=== PATIENT | female | born 1955 | race African-American/Black ===

== ENCOUNTER 2016-06-05 08:03 | Outpatient (CLI) | payer MEDICARE ==
[2016-06-05 09:15] LABS: Anion Gap 19 mmol/L (10-20); BUN (Urea Nitrogen) 79 mg/dL (9.8-20.1); Calc. Creatinine Clearance 0 mL/min (70-130); Carbon Dioxide 27 mmol/L (23-31); Chloride 99 mmol/L (98-107); Estimated GFR-MDRD 10
[2016-06-05 10:16] LABS: #Basophils 0.1 thou/uL (0.0-0.2); #Eosinphils 0.3 thou/uL (0.0-0.7); #Monocytes 0.7 thou/uL (0.11-0.59); #Neutrophils 3.2 thou/uL (1.40-6.50); %Eosinophils 4.3 % (0.0-10.0); %Lymphocytes 40.8 % (21.0-51.0); %Monocytes 9.8 % (0.0-10.0); Hematocrit 40.1 % (36.0-47.0); Mean Platelet Volume 6.7 fL (7.4-10.4); Red Blood Cell (RBC) Count 4.21 mill/uL (4.20-5.40); White Blood Cell (WBC) Count 7.4 thou/uL (4.8-10.8)
[2016-06-05 10:17] LABS: Anisocytosis SLIGHT = 6-15 cells (100X) (0-5/hpf)
== END 2016-06-05 08:04 | disposition home or self-care (01) ==
LOC: NAV LABSP 08:03
PROVIDERS: ATTEND Family Medicine
DX: E16.2 Hypoglycemia, unspecified (principal); D64.9 Anemia, unspecified
CPT/HCPCS: 36415; 80048; 85025

== ENCOUNTER 2016-07-09 08:16 | Outpatient (CLI) | payer MEDICARE ==
[2016-07-09 09:33] LABS: #Basophils 0.1 thou/uL (0.0-0.2); #Eosinphils 0.3 thou/uL (0.0-0.7); #Lymphocytes 3.2 thou/uL (1.20-3.40); #Monocytes 0.7 thou/uL (0.11-0.59); #Neutrophils 4.4 thou/uL (1.40-6.50); %Basophils 0.8 % (0.0-1.0); %Lymphocytes 37.2 % (21.0-51.0); %Monocytes 8.3 % (0.0-10.0); Hematocrit 29.7 % (36.0-47.0); Mean Platelet Volume 6.5 fL (7.4-10.4); Red Blood Cell (RBC) Count 3.24 mill/uL (4.20-5.40); White Blood Cell (WBC) Count 8.7 thou/uL (4.8-10.8)
[2016-07-09 09:41] LABS: ALT (SGPT) 13 U/L (0-55); AST (SGOT) 15 U/L (5-34); Alkaline Phosphatase 69 U/L (40-150); Anion Gap 19 mmol/L (10-20); Bilirubin, Direct 0.2 mg/dL (0.1-0.3); Bilirubin, Total 0.5 mg/dL (0.2-1.2); Calc. Creatinine Clearance 0 mL/min (70-130); Calcium 8.5 mg/dL (7.8-10.44); Carbon Dioxide 26 mmol/L (23-31); Chloride 96 mmol/L (98-107); Estimated GFR-MDRD 7; LDL Cholesterol, Calculated 105 mg/dL; Protein, Total 5.9 g/dL (5.8-8.1)
[2016-07-09 12:03] LABS: BUN (Urea Nitrogen) 104 mg/dL (9.8-20.1)
== END 2016-07-09 08:17 | disposition home or self-care (01) ==
LOC: NAV LABSP 08:16
PROVIDERS: ATTEND Family Medicine
DX: E16.2 Hypoglycemia, unspecified (principal); D64.9 Anemia, unspecified
CPT/HCPCS: 36415; 80048; 80061; 80076; 85025

== ENCOUNTER 2016-08-07 07:42 | Outpatient (CLI) | payer MEDICARE ==
[2016-08-07 10:01] LABS: Anion Gap 19 mmol/L (10-20); BUN (Urea Nitrogen) 46 mg/dL (9.8-20.1); Calc. Creatinine Clearance 0 mL/min (70-130); Carbon Dioxide 27 mmol/L (23-31); Chloride 99 mmol/L (98-107); Estimated GFR-MDRD 12
[2016-08-07 11:38] LABS: #Basophils 0.1 thou/uL (0.0-0.2); #Eosinphils 0.2 thou/uL (0.0-0.7); #Lymphocytes 3.1 thou/uL (1.20-3.40); #Monocytes 0.7 thou/uL (0.11-0.59); #Neutrophils 2.8 thou/uL (1.40-6.50); %Basophils 1.1 % (0.0-1.0); %Eosinophils 3.3 % (0.0-10.0); %Lymphocytes 44.7 % (21.0-51.0); %Monocytes 10.6 % (0.0-10.0); Anisocytosis SLIGHT = 6-15 cells (100X) (0-5/hpf); Hematocrit 39.3 % (36.0-47.0); Macrocytosis SLIGHT = 6-15 cells (100X) (0-5/hpf); Red Blood Cell (RBC) Count 3.82 mill/uL (4.20-5.40); White Blood Cell (WBC) Count 6.9 thou/uL (4.8-10.8)
== END 2016-08-07 07:43 | disposition home or self-care (01) ==
LOC: NAV LABSP 07:42
PROVIDERS: ATTEND Family Medicine
DX: D64.9 Anemia, unspecified (principal); E16.2 Hypoglycemia, unspecified
CPT/HCPCS: 36415; 80048; 85025

== ENCOUNTER 2016-09-09 07:19 | Outpatient (CLI) | payer MEDICARE, OTHER ==
[2016-09-09 07:43] LABS: INR-International Normal Ratio 1.9; Prothrombin Time 21.9 SEC (12.0-14.7)
[2016-09-09 07:50] LABS: Anion Gap 20 mmol/L (10-20); BUN (Urea Nitrogen) 59 mg/dL (9.8-20.1); Calc. Creatinine Clearance 0 mL/min (70-130); Calcium 9.2 mg/dL (7.8-10.44); Carbon Dioxide 27 mmol/L (23-31); Chloride 98 mmol/L (98-107); Estimated GFR-MDRD 8; Potassium 4.3 mmol/L (3.5-5.1); Sodium 141 mmol/L (136-145)
[2016-09-09 07:56] LABS: #Basophils 0.1 thou/uL (0.0-0.2); #Eosinphils 0.2 thou/uL (0.0-0.7); #Lymphocytes 1.8 thou/uL (1.20-3.40); #Monocytes 0.7 thou/uL (0.11-0.59); #Neutrophils 2.6 thou/uL (1.40-6.50); %Basophils 1.2 % (0.0-1.0); %Eosinophils 4.4 % (0.0-10.0); %Lymphocytes 33.9 % (21.0-51.0); %Monocytes 13.3 % (0.0-10.0); %Neutrophils 47.2 % (42.0-75.0); Hemoglobin 13.2 g/dL (12.0-16.0); Mean Corpuscular HGB CONC 30.7 g/dL (32.0-36.0); Mean Platelet Volume 6.5 fL (7.4-10.4); Platelet Count 253 thou/uL (130-400); RBC Distribution Width 19.5 % (11.5-14.5); Red Blood Cell (RBC) Count 4.14 mill/uL (4.20-5.40); White Blood Cell (WBC) Count 5.4 thou/uL (4.8-10.8)
[2016-09-09 08:13] LABS: Glucose 56 mg/dL (80-115)
== END 2016-09-09 07:20 | disposition home or self-care (01) ==
LOC: NAV LABSP 07:19
PROVIDERS: ATTEND Family Medicine
DX: D64.9 Anemia, unspecified (principal); E11.9 Type 2 diabetes mellitus without complications; E78.5 Hyperlipidemia, unspecified
CPT/HCPCS: 36415; 80048; 85025; 85610

== ENCOUNTER 2016-10-22 08:12 | Outpatient (CLI) | payer MEDICARE, OTHER ==
[2016-10-22 08:51] LABS: #Basophils 0.1 thou/uL (0.0-0.2); #Eosinphils 0.2 thou/uL (0.0-0.7); #Lymphocytes 3.1 thou/uL (1.20-3.40); #Monocytes 0.7 thou/uL (0.11-0.59); #Neutrophils 3.5 thou/uL (1.40-6.50); %Basophils 0.8 % (0.0-1.0); %Lymphocytes 40.4 % (21.0-51.0); %Monocytes 9.4 % (0.0-10.0); %Neutrophils 46.4 % (42.0-75.0); Hemoglobin 11.5 g/dL (12.0-16.0); Mean Corpuscular HGB CONC 30.3 g/dL (32.0-36.0); Mean Corpuscular Hemoglobin 29.4 pg (27.0-31.0); Mean Platelet Volume 6.7 fL (7.4-10.4); Platelet Count 183 thou/uL (130-400); RBC Distribution Width 16.8 % (11.5-14.5); Red Blood Cell (RBC) Count 3.92 mill/uL (4.20-5.40); White Blood Cell (WBC) Count 7.6 thou/uL (4.8-10.8)
[2016-10-22 09:00] LABS: Anion Gap 22 mmol/L (10-20); BUN (Urea Nitrogen) 108 mg/dL (9.8-20.1); Calc. Creatinine Clearance 0 mL/min (70-130); Calcium 8.5 mg/dL (7.8-10.44); Carbon Dioxide 23 mmol/L (23-31); Chloride 97 mmol/L (98-107); Estimated GFR-MDRD 7; Potassium 4.6 mmol/L (3.5-5.1); Sodium 137 mmol/L (136-145)
[2016-10-22 09:26] LABS: Glucose 56 mg/dL (80-115)
== END 2016-10-22 08:13 | disposition home or self-care (01) ==
LOC: NAV LABSP 08:12
PROVIDERS: ATTEND Family Medicine
DX: E16.2 Hypoglycemia, unspecified (principal); D64.9 Anemia, unspecified
CPT/HCPCS: 36415; 80048; 85025

== ENCOUNTER 2016-11-14 07:13 | Outpatient (CLI) | payer MEDICARE, OTHER ==
[2016-11-14 08:05] LABS: #Basophils 0.1 thou/uL (0.0-0.2); #Eosinphils 0.2 thou/uL (0.0-0.7); #Monocytes 0.8 thou/uL (0.11-0.59); #Neutrophils 3.3 thou/uL (1.40-6.50); %Basophils 0.8 % (0.0-1.0); %Eosinophils 2.4 % (0.0-10.0); %Lymphocytes 40.2 % (21.0-51.0); %Monocytes 11.2 % (0.0-10.0); %Neutrophils 45.4 % (42.0-75.0); Hemoglobin 9.3 g/dL (12.0-16.0); Mean Corpuscular HGB CONC 31.1 g/dL (32.0-36.0); Mean Corpuscular Hemoglobin 29.1 pg (27.0-31.0); Mean Corpuscular Volume 93.5 fl (81.0-99.0); Mean Platelet Volume 6.3 fL (7.4-10.4); Platelet Count 191 thou/uL (130-400); RBC Distribution Width 16.6 % (11.5-14.5); Red Blood Cell (RBC) Count 3.18 mill/uL (4.20-5.40); White Blood Cell (WBC) Count 7.4 thou/uL (4.8-10.8)
[2016-11-14 08:08] LABS: INR-International Normal Ratio 1.9; Prothrombin Time 22.7 SEC (12.0-14.7)
[2016-11-14 08:18] LABS: Anion Gap 18 mmol/L (10-20); BUN (Urea Nitrogen) 75 mg/dL (9.8-20.1); Calc. Creatinine Clearance 0 mL/min (70-130); Calcium 8.7 mg/dL (7.8-10.44); Carbon Dioxide 28 mmol/L (23-31); Chloride 98 mmol/L (98-107); Estimated GFR-MDRD 9; Sodium 140 mmol/L (136-145)
[2016-11-14 08:34] LABS: Glucose 59 mg/dL (80-115)
== END 2016-11-14 07:14 | disposition home or self-care (01) ==
LOC: NAV LABSP 07:13
PROVIDERS: ATTEND Family Medicine
DX: E16.2 Hypoglycemia, unspecified (principal); D64.9 Anemia, unspecified
CPT/HCPCS: 36415; 80048; 85025; 85610

== ENCOUNTER 2016-11-15 07:11 | Outpatient (CLI) | payer MEDICARE, OTHER ==
[2016-11-15 08:14] LABS: INR-International Normal Ratio 1.7; Prothrombin Time 20.8 SEC (12.0-14.7)
== END 2016-11-15 07:12 | disposition home or self-care (01) ==
LOC: NAV LABSP 07:11
PROVIDERS: ATTEND Family Medicine
DX: Z79.01 Long term (current) use of anticoagulants (principal)
CPT/HCPCS: 36415; 85610

== ENCOUNTER 2016-11-18 07:07 | Outpatient (CLI) | payer MEDICARE, OTHER ==
[2016-11-18 08:49] LABS: INR-International Normal Ratio 1.3; Prothrombin Time 16.7 SEC (12.0-14.7)
== END 2016-11-18 07:08 | disposition home or self-care (01) ==
LOC: NAV LABSP 07:07
PROVIDERS: ATTEND Family Medicine
DX: Z51.81 Encounter for therapeutic drug level monitoring (principal); Z79.01 Long term (current) use of anticoagulants
CPT/HCPCS: 36415; 85610

== ENCOUNTER 2016-11-19 09:00 | Outpatient (CLI) | payer MEDICARE, OTHER ==
[2016-11-19 10:01] LABS: INR-International Normal Ratio 1.4; Prothrombin Time 17.6 SEC (12.0-14.7)
== END 2016-11-19 09:01 | disposition home or self-care (01) ==
LOC: NAV LABSP 09:00
PROVIDERS: ATTEND Family Medicine
DX: Z51.81 Encounter for therapeutic drug level monitoring (principal); Z79.01 Long term (current) use of anticoagulants
CPT/HCPCS: 36415; 85610

== ENCOUNTER 2016-11-20 07:53 | Outpatient (CLI) | payer MEDICARE, OTHER ==
[2016-11-20 09:04] LABS: INR-International Normal Ratio 1.5; Prothrombin Time 18.1 SEC (12.0-14.7)
== END 2016-11-20 07:54 | disposition home or self-care (01) ==
LOC: NAV LABSP 07:53
PROVIDERS: ATTEND Family Medicine
DX: Z51.81 Encounter for therapeutic drug level monitoring (principal); Z79.01 Long term (current) use of anticoagulants
CPT/HCPCS: 36415; 85610

== ENCOUNTER 2016-11-21 10:40 | Outpatient (CLI) | payer MEDICARE, OTHER ==
[2016-11-21 12:41] LABS: INR-International Normal Ratio 1.5; Prothrombin Time 18.7 SEC (12.0-14.7)
== END 2016-11-21 10:41 | disposition home or self-care (01) ==
LOC: NAV LABSP 10:40
PROVIDERS: ATTEND Family Medicine
DX: Z51.81 Encounter for therapeutic drug level monitoring (principal); Z79.01 Long term (current) use of anticoagulants
CPT/HCPCS: 36415; 85610

== ENCOUNTER 2016-11-22 07:56 | Outpatient (CLI) | payer MEDICARE, OTHER ==
[2016-11-22 08:43] LABS: INR-International Normal Ratio 1.5; Prothrombin Time 18.1 SEC (12.0-14.7)
== END 2016-11-22 07:57 | disposition home or self-care (01) ==
LOC: NAV LABSP 07:56
PROVIDERS: ATTEND Family Medicine
DX: Z51.81 Encounter for therapeutic drug level monitoring (principal); Z79.01 Long term (current) use of anticoagulants
CPT/HCPCS: 36415; 85610

== ENCOUNTER 2016-11-25 08:55 | Outpatient (CLI) | payer MEDICARE, OTHER ==
[2016-11-25 10:45] LABS: INR-International Normal Ratio 1.3; Prothrombin Time 16.7 SEC (12.0-14.7)
== END 2016-11-25 08:56 | disposition home or self-care (01) ==
LOC: NAV LAB 08:55
PROVIDERS: ATTEND Family Medicine
DX: Z51.81 Encounter for therapeutic drug level monitoring (principal); Z79.01 Long term (current) use of anticoagulants
CPT/HCPCS: 36415; 85610

== ENCOUNTER 2016-11-27 08:04 | Outpatient (CLI) | payer MEDICARE, OTHER ==
[2016-11-27 09:42] LABS: INR-International Normal Ratio 1.9; Prothrombin Time 22.8 SEC (12.0-14.7)
== END 2016-11-27 08:05 | disposition home or self-care (01) ==
LOC: NAV LABSP 08:04
PROVIDERS: ATTEND Family Medicine
DX: Z51.81 Encounter for therapeutic drug level monitoring (principal); Z79.01 Long term (current) use of anticoagulants
CPT/HCPCS: 36415; 85610

== ENCOUNTER 2016-11-28 07:11 | Outpatient (CLI) | payer MEDICARE, OTHER ==
[2016-11-28 08:24] LABS: INR-International Normal Ratio 1.7; Prothrombin Time 20.6 SEC (12.0-14.7)
== END 2016-11-28 07:12 | disposition home or self-care (01) ==
LOC: NAV LABSP 07:11
PROVIDERS: ATTEND Family Medicine
DX: Z51.81 Encounter for therapeutic drug level monitoring (principal); D64.9 Anemia, unspecified; Z79.01 Long term (current) use of anticoagulants
CPT/HCPCS: 36415; 85610

== ENCOUNTER 2016-11-30 10:28 | Outpatient (CLI) | payer MEDICARE, OTHER ==
[2016-11-30 15:37] LABS: INR-International Normal Ratio 2.2; Prothrombin Time 25.2 SEC (12.0-14.7)
== END 2016-11-30 10:29 | disposition home or self-care (01) ==
LOC: NAV LABSP 10:28
PROVIDERS: ATTEND Family Medicine
DX: E16.2 Hypoglycemia, unspecified (principal); D64.9 Anemia, unspecified; Z79.01 Long term (current) use of anticoagulants
CPT/HCPCS: 36415; 85610

== ENCOUNTER 2016-12-09 10:32 | Outpatient (CLI) | payer MEDICARE, OTHER ==
[2016-12-09 12:05] LABS: INR-International Normal Ratio 1.5; Prothrombin Time 18.8 SEC (12.0-14.7)
== END 2016-12-09 10:33 | disposition home or self-care (01) ==
LOC: NAV LABSP 10:32
PROVIDERS: ATTEND Family Medicine
DX: Z51.81 Encounter for therapeutic drug level monitoring (principal); I63.412 Cerebral infarction due to embolism of left middle cerebral artery; Z79.01 Long term (current) use of anticoagulants
CPT/HCPCS: 36415; 85610

== ENCOUNTER 2016-12-16 22:41 | Outpatient (CLI) | payer MEDICARE, OTHER ==
[2016-12-16 23:10] LABS: INR-International Normal Ratio 3.5; Prothrombin Time 36.8 SEC (12.0-14.7)
== END 2016-12-16 22:42 | disposition home or self-care (01) ==
LOC: NAV LABSP 22:41
PROVIDERS: ATTEND Family Medicine
DX: Z51.81 Encounter for therapeutic drug level monitoring (principal); Z79.01 Long term (current) use of anticoagulants
CPT/HCPCS: 36415; 85610

== ENCOUNTER 2016-12-23 09:38 | Outpatient (CLI) | payer MEDICARE, OTHER ==
[2016-12-23 10:28] LABS: Prothrombin Time 32.2 SEC (12.0-14.7)
== END 2016-12-23 09:39 | disposition home or self-care (01) ==
LOC: NAV LABSP 09:38
PROVIDERS: ATTEND Family Medicine
DX: Z51.81 Encounter for therapeutic drug level monitoring (principal); Z79.01 Long term (current) use of anticoagulants
CPT/HCPCS: 36415; 85610

== ENCOUNTER 2016-12-30 07:32 | Outpatient (CLI) | payer MEDICARE, OTHER ==
[2016-12-30 08:57] LABS: INR-International Normal Ratio 3.7; Prothrombin Time 38.9 SEC (12.0-14.7)
== END 2016-12-30 07:33 | disposition home or self-care (01) ==
LOC: NAV LABSP 07:32
PROVIDERS: ATTEND Family Medicine
DX: Z51.81 Encounter for therapeutic drug level monitoring (principal); Z79.01 Long term (current) use of anticoagulants
CPT/HCPCS: 36415; 85610

== ENCOUNTER 2017-01-06 07:27 | Outpatient (CLI) | payer MEDICARE, OTHER ==
[2017-01-06 09:08] LABS: Prothrombin Time 40.8 SEC (12.0-14.7)
== END 2017-01-06 07:28 | disposition home or self-care (01) ==
LOC: NAV LABSP 07:27
PROVIDERS: ATTEND Family Medicine
DX: E16.2 Hypoglycemia, unspecified (principal); D64.9 Anemia, unspecified; Z79.01 Long term (current) use of anticoagulants
CPT/HCPCS: 36415; 85610

== ENCOUNTER 2017-01-08 07:42 | Outpatient (CLI) | payer MEDICARE, OTHER ==
[2017-01-08 11:20] LABS: INR-International Normal Ratio 2.6; Prothrombin Time 29.1 SEC (12.0-14.7)
[2017-01-08 11:31] LABS: #Basophils 0.1 thou/uL (0.0-0.2); #Eosinphils 0.2 thou/uL (0.0-0.7); #Lymphocytes 2.7 thou/uL (1.20-3.40); #Monocytes 0.9 thou/uL (0.11-0.59); #Neutrophils 3.4 thou/uL (1.40-6.50); %Basophils 1.1 % (0.0-1.0); %Eosinophils 3.1 % (0.0-10.0); %Lymphocytes 37.2 % (21.0-51.0); %Monocytes 11.9 % (0.0-10.0); %Neutrophils 46.7 % (42.0-75.0); Anisocytosis MARKED = >30 cells (100X) (0-5/hpf); Hemoglobin 9.5 g/dL (12.0-16.0); Hypochromia MODERATE=16-30 cells (100X) (0-5/hpf); MDiff Complete? YES; Macrocytosis SLIGHT = 6-15 cells (100X) (0-5/hpf); Mean Corpuscular HGB CONC 30.8 g/dL (32.0-36.0); Mean Corpuscular Hemoglobin 32.2 pg (27.0-31.0); Mean Platelet Volume 6.2 fL (7.4-10.4); PLT Morphology Comment Appears Adequate; Platelet Count 225 thou/uL (130-400); Poikilocytosis MODERATE=16-30 cells (100X) (0-5/hpf); RBC Distribution Width 19.5 % (11.5-14.5); Red Blood Cell (RBC) Count 2.95 mill/uL (4.20-5.40); Reflex for Review?? NO; Stomatocytes MODERATE= 6-15 cells (100X) (0-1/hpf); Target Cells SLIGHT = 2-5 cells (100X) (0-1/hpf); White Blood Cell (WBC) Count 7.3 thou/uL (4.8-10.8)
[2017-01-08 17:26] LABS: Hemoglobin A1c 4.4 % (4.0-6.0)
[2017-01-08 17:43] LABS: ALT (SGPT) 17 U/L (8-55); AST (SGOT) 15 U/L (5-34); Albumin 3.2 g/dL (3.4-4.8); Alkaline Phosphatase 80 U/L (40-150); Anion Gap 19 mmol/L (10-20); BUN (Urea Nitrogen) 53 mg/dL (9.8-20.1); Bilirubin, Direct 0.1 mg/dL (0.1-0.3); Bilirubin, Total 0.5 mg/dL (0.2-1.2); Calc. Creatinine Clearance 0 mL/min (70-130); Calcium 8.6 mg/dL (7.8-10.44); Carbon Dioxide 27 mmol/L (23-31); Cardiac Risk 4.2 (Less than 4.5); Chloride 97 mmol/L (98-107); Cholesterol 254 mg/dl (< 200 Desired); Estimated GFR-MDRD 11; Glucose 91 mg/dL (80-115); HDL Cholesterol 61 mg/dL (>60 Neg Risk); LDL Cholesterol, Calculated 152 mg/dL; Protein, Total 6.1 g/dL (6.0-8.3); Sodium 139 mmol/L (136-145); Triglycerides 205 mg/dL (Less than 150)
== END 2017-01-08 07:43 | disposition home or self-care (01) ==
LOC: NAV LABSP 07:42
PROVIDERS: ATTEND Family Medicine
DX: Z51.81 Encounter for therapeutic drug level monitoring (principal); E16.2 Hypoglycemia, unspecified; D64.9 Anemia, unspecified; E11.22 Type 2 diabetes mellitus with diabetic chronic kidney disease; I12.9 Hypertensive chronic kidney disease with stage 1 through stage 4 chronic kidney disease, or unspecified chronic kidney disease; N18.9 Chronic kidney disease, unspecified; Z79.01 Long term (current) use of anticoagulants
CPT/HCPCS: 36415; 80048; 80061; 80076; 83036; 84443; 85025; 85610

== ENCOUNTER 2017-01-13 10:38 | Outpatient (CLI) | payer MEDICARE, OTHER ==
[2017-01-13 11:31] LABS: INR-International Normal Ratio 2.3; Prothrombin Time 25.7 SEC (12.0-14.7)
== END 2017-01-13 10:39 | disposition home or self-care (01) ==
LOC: NAV LABSP 10:38
PROVIDERS: ATTEND Family Medicine
DX: E16.2 Hypoglycemia, unspecified (principal); D64.9 Anemia, unspecified; Z79.01 Long term (current) use of anticoagulants
CPT/HCPCS: 36415; 85610

== ENCOUNTER 2017-01-16 07:27 | Outpatient (CLI) | payer MEDICARE, OTHER ==
[2017-01-16 07:48] LABS: Hemoglobin A1c 4.4 % (4.0-6.0)
== END 2017-01-16 07:28 | disposition home or self-care (01) ==
LOC: NAV LABSP 07:27
PROVIDERS: ATTEND Family Medicine
DX: E11.9 Type 2 diabetes mellitus without complications (principal)
CPT/HCPCS: 36415; 83036

== ENCOUNTER 2017-01-20 08:06 | Outpatient (CLI) | payer MEDICARE, OTHER ==
[2017-01-20 09:11] LABS: INR-International Normal Ratio 1.6; Prothrombin Time 19.1 SEC (12.0-14.7)
== END 2017-01-20 08:07 | disposition home or self-care (01) ==
LOC: NAV LABSP 08:06
PROVIDERS: ATTEND Family Medicine
DX: Z51.81 Encounter for therapeutic drug level monitoring (principal); Z79.01 Long term (current) use of anticoagulants
CPT/HCPCS: 36415; 85610

== ENCOUNTER 2017-01-27 09:01 | Outpatient (CLI) | payer MEDICARE, OTHER ==
[2017-01-27 09:19] LABS: INR-International Normal Ratio 2.6; Prothrombin Time 28.5 SEC (12.0-14.7)
== END 2017-01-27 09:02 | disposition home or self-care (01) ==
LOC: NAV LABSP 09:01
PROVIDERS: ATTEND Family Medicine
DX: Z51.81 Encounter for therapeutic drug level monitoring (principal); Z79.01 Long term (current) use of anticoagulants
CPT/HCPCS: 36415; 85610

== ENCOUNTER 2017-02-04 07:56 | Outpatient (CLI) | payer MEDICARE, OTHER ==
[2017-02-04 11:08] LABS: INR-International Normal Ratio 2.7; Prothrombin Time 29.4 SEC (12.0-14.7)
== END 2017-02-04 07:57 | disposition home or self-care (01) ==
LOC: NAV LABSP 07:56
PROVIDERS: ATTEND Internal Medicine
DX: Z51.81 Encounter for therapeutic drug level monitoring (principal); I10 Essential (primary) hypertension; Z79.01 Long term (current) use of anticoagulants
CPT/HCPCS: 36415; 85610

== ENCOUNTER 2017-02-24 09:50 | Emergency (ER) | payer MEDICARE, OTHER ==
[2017-02-24 10:39] LABS: #Basophils 0.1 thou/uL (0.0-0.2); #Eosinphils 0.2 thou/uL (0.0-0.7); #Lymphocytes 2.6 thou/uL (1.20-3.40); #Monocytes 0.8 thou/uL (0.11-0.59); #Neutrophils 3.9 thou/uL (1.40-6.50); %Basophils 1.2 % (0.0-1.0); %Eosinophils 2.4 % (0.0-10.0); %Lymphocytes 34.8 % (21.0-51.0); %Monocytes 10.3 % (0.0-10.0); %Neutrophils 51.4 % (42.0-75.0); Hemoglobin 12.2 g/dL (12.0-16.0); INR-International Normal Ratio 2.5; Mean Corpuscular Hemoglobin 29.9 pg (27.0-31.0); Mean Corpuscular Volume 99.8 fl (81.0-99.0); Mean Platelet Volume 7.1 fL (7.4-10.4); Platelet Count 206 thou/uL (130-400); Prothrombin Time 27.8 SEC (12.0-14.7); RBC Distribution Width 18.7 % (11.5-14.5); Red Blood Cell (RBC) Count 4.08 mill/uL (4.20-5.40); White Blood Cell (WBC) Count 7.6 thou/uL (4.8-10.8)
[2017-02-24 10:41] LABS: D-Dimer Test 0.32 *mcg/mL (0.27-0.43)
[2017-02-24 10:48] LABS: ALT (SGPT) 22 U/L (8-55); AST (SGOT) 15 U/L (5-34); Albumin 3.6 g/dL (3.4-4.8); Alkaline Phosphatase 99 U/L (40-150); Anion Gap 28 mmol/L (10-20); BUN (Urea Nitrogen) 73 mg/dL (9.8-20.1); Bilirubin, Total 0.4 mg/dL (0.2-1.2); Calc. Creatinine Clearance 0 mL/min (70-130); Calcium 9.7 mg/dL (7.8-10.44); Carbon Dioxide 20 mmol/L (23-31); Chloride 97 mmol/L (98-107); Estimated GFR-MDRD 6; Globulin 3.6 g/dL (2.4-3.5); Glucose 184 mg/dL (80-115); Potassium 4.7 mmol/L (3.5-5.1); Protein, Total 7.2 g/dL (6.0-8.3); Sodium 140 mmol/L (136-145)
[2017-02-24] MEDS ORDERED: Sodium Chloride 0.9% 250 ML 250 ML ONE ×2 (11:34→13:01)
[2017-02-24 11:38] LABS: Bilirubin Negative (Negative); Blood, Urine Large (Negative); Clarity Cloudy (Clear); Glucose, Urine (Dipstick) Negative (Negative); Leukocyte Moderate (Negative); Nitrite Negative (Negative); Protein, Urine (Dipstick) > or equal to 300 mg/dL (Neg-Trace); Specific Gravity, Urine 1.025 (1.005-1.030); Urobilinogen 0.2 mg/dL (0.2-1.0)
[2017-02-24 11:41] LABS: Bacteria/HPF 1+ HPF (None Seen); Crystals/HPF 2+ AMORPH URATES HPF (Negative); Squamous Epithelial 0-3 HPF (0-3)
--- NOTE | 2017-02-24 11:49 | RAD ---
PORTABLE CHEST ONE VIEW: 02/24/2017 11:27 a.m. HISTORY: Palpitations. FINDINGS: The heart size is borderline. There is evidence of old granulomatous disease. No focal areas of co nsolidation, pneumothorax, dora pulmonary edema, or pleural effusions are seen. IMPRESSION: No acute process. POS: [facility]
[2017-02-24] MEDS ORDERED: Cefepime 1 GM VIAL ONE (11:55)
[2017-02-24] MEDS ORDERED: Sodium Chloride 0.9% 100 ML ONE (11:55)
== END 2017-02-24 13:30 | disposition short-term general hospital (02) ==
LOC: NAV ERS 09:50
DX: A41.9 Sepsis, unspecified organism (principal); I47.1 Supraventricular tachycardia; N39.0 Urinary tract infection, site not specified; E11.22 Type 2 diabetes mellitus with diabetic chronic kidney disease; E78.5 Hyperlipidemia, unspecified; I12.0 Hypertensive chronic kidney disease with stage 5 chronic kidney disease or end stage renal disease; N18.6 End stage renal disease; Z79.899 Other long term (current) drug therapy; Z79.84 Long term (current) use of oral hypoglycemic drugs; Z79.82 Long term (current) use of aspirin
CPT/HCPCS: 36415; 51701; 71010; 80053; 81003; 81015; 82553; 83605; 83880; 84484; 85025; 85379; 85610; 85730; 87040; 87086; 93005; 96361; 96365; 96368; A4353; J0692; J3370; J7050

== ENCOUNTER 2017-10-20 16:48 | Outpatient (CLI) | payer MEDICARE, OTHER ==
[2017-10-20 17:31] LABS: INR-International Normal Ratio 1.5; Prothrombin Time 18.5 SEC (12.0-14.7)
== END 2017-10-20 16:49 | disposition home or self-care (01) ==
LOC: NAV LAB 16:48
PROVIDERS: ATTEND Family Medicine
DX: E11.22 Type 2 diabetes mellitus with diabetic chronic kidney disease (principal); I12.0 Hypertensive chronic kidney disease with stage 5 chronic kidney disease or end stage renal disease; N18.6 End stage renal disease; Z79.01 Long term (current) use of anticoagulants
CPT/HCPCS: 36415; 85610

== ENCOUNTER 2018-01-13 08:17 | Outpatient (CLI) | payer MEDICARE, OTHER ==
[2018-01-13 09:23] LABS: INR-International Normal Ratio 2.9
== END 2018-01-13 08:18 | disposition home or self-care (01) ==
LOC: NAV LAB 08:17
PROVIDERS: ATTEND Family Medicine
DX: N18.6 End stage renal disease (principal)
CPT/HCPCS: 36415; 85610

== ENCOUNTER 2019-01-24 05:52 | Outpatient (CLI) | payer MEDICARE, OTHER ==
[2019-01-24 06:03] LABS: #Basophils 0.1 thou/uL (0.0-0.2); #Lymphocytes 1.4 thou/uL (1.20-3.40); #Monocytes 0.9 thou/uL (0.11-0.59); #Neutrophils 8.1 thou/uL (1.40-6.50); %Basophils 0.7 % (0.0-1.0); %Eosinophils 0.4 % (0.0-10.0); %Lymphocytes 13.4 % (21.0-51.0); %Monocytes 8.3 % (0.0-10.0); %Neutrophils 77.2 % (42.0-75.0); Hemoglobin 10.8 g/dL (12.0-16.0); Mean Corpuscular HGB CONC 30.9 g/dL (32.0-36.0); Mean Corpuscular Hemoglobin 29.3 pg (27.0-31.0); Mean Corpuscular Volume 94.9 fL (78.0-98.0); Mean Platelet Volume 6.5 fL (7.4-10.4); Platelet Count 166 thou/uL (130-400); RBC Distribution Width 16.7 % (11.5-14.5); White Blood Cell (WBC) Count 10.4 thou/uL (4.8-10.8)
[2019-01-24 06:12] LABS: Anion Gap 19 mmol/L (10-20); BUN (Urea Nitrogen) 42 mg/dL (9.8-20.1); Calc. Creatinine Clearance 0 mL/min (70-130); Calcium 8.9 mg/dL (7.8-10.44); Carbon Dioxide 29 mmol/L (23-31); Chloride 95 mmol/L (98-107); Estimated GFR-MDRD 9; Glucose 124 mg/dL (80-115); Potassium 4.3 mmol/L (3.5-5.1); Sodium 139 mmol/L (136-145)
== END 2019-01-24 05:53 | disposition home or self-care (01) ==
LOC: NAV LAB 05:52
PROVIDERS: ATTEND Family Medicine
DX: I63.412 Cerebral infarction due to embolism of left middle cerebral artery (principal); I47.1 Supraventricular tachycardia; R50.9 Fever, unspecified
CPT/HCPCS: 80048; 85025